=== PATIENT | female | born 1950 | race Caucasian/White ===

== ENCOUNTER 2023-05-06 02:27 | Emergency (ER) | payer MEDICARE, OTHER ==
[~2023-05-06] VITALS: Ht 167.6 cm; Wt 81.6 kg
[~2023-05-06 02:27] MED LIST: ASPI-1393 PO; BENA40TA89 PO; CHOL500037 PO; GLYB2.5T4 PO; HYDR-3919 PO; OMEP40CA20 PO; TOPXL100 PO; VENL75CA PO
[2023-05-06 02:43] VITALS: BP_SYST 164; PULSE 67; RESP 16; TEMP 97.4; O2SAT 97
[2023-05-06] MEDS ORDERED: MORPHINE 4 MG INJ. 4 MG/ML VIAL IVP ONE (03:30)
[2023-05-06 05:39] LABS: BASOPHILS % (AUTO) 0.4 % (0.0-2.0); EOSINOPHILS % (AUTO) 0.5 % (0.0-4.0); HEMATOCRIT 24.5 % (36-48); HEMOGLOBIN 8.3 g/dL (12.0-16.0); LYMPHOCYTES # (AUTO) 0.6 K/uL (1.0-5.5); LYMPHOCYTES % (AUTO) 6.3 % (20.5-51.5); MEAN CORPUSCULAR HEMOGLOBIN 31 pg (27-31); MEAN CORPUSCULAR HGB CONC 34 % (32-36); MEAN CORPUSCULAR VOLUME 92 fL (79.0-98.0); MONOCYTES # (AUTO) 0.7 K/uL (0.0-1.0); MONOCYTES % (AUTO) 7.5 % (1.7-9.3); NEUTROPHILS # (AUTO) 7.7 K/uL (1.8-7.7); NEUTROPHILS % (AUTO) 85.3 % (40.0-70.0); PLATELET COUNT (AUTO) 180 K/uL (130-430); RED BLOOD CELL COUNT(AUTO) 2.66 MIL/uL (4.2-6.2)
[2023-05-06 06:09] VITALS: BP_SYST 134; PULSE 74; RESP 18; TEMP 97; O2SAT 99
[2023-05-06 06:14] LABS: ALANINE AMINOTRANSFERASE 18 U/L (12-78); ALBUMIN 2.4 g/dL (3.4-4.8); ANION GAP 3 (5-15); ASPARTATE AMINOTRANSFERASE 26 U/L (10-37); CALCIUM 8.9 mg/dL (8.4-11.0); CARBON DIOXIDE 28 mmol/L (23-29); CHLORIDE 94 mmol/L (98-107); GLUCOSE 99 mg/dL (74-106); POTASSIUM 4.1 mmol/L (3.5-5.1); SODIUM SERUM 125 mmol/L (136-145); TOTAL BILIRUBIN 0.9 mg/dL (0.0-1.0); TOTAL PROTEIN, SERUM 6.3 g/dL (6.4-8.3); UREA NITROGEN, BLOOD 22 mg/dL (8-21)
== END 2023-05-06 06:09 | disposition short-term general hospital (02) ==
LOC: SED 02:27
DX: S72.092A Other fracture of head and neck of left femur, initial encounter for closed fracture (principal); E11.9 Type 2 diabetes mellitus without complications; I10 Essential (primary) hypertension; Z88.0 Allergy status to penicillin; Z79.899 Other long term (current) drug therapy; W01.0XXA Fall on same level from slipping, tripping and stumbling without subsequent striking against object, initial encounter; Y93.89 Activity, other specified; Y92.89 Other specified places as the place of occurrence of the external cause; Y99.8 Other external cause status
CPT/HCPCS: 99285; 96374; 80053; 82962; 85025; 36415; 93005; 72170; 73502; J2270

== ENCOUNTER 2023-08-11 13:06 | Emergency (ER) | payer MEDICARE ==
[~2023-08-11] VITALS: Ht 167.6 cm; Wt 81.6 kg
[2023-08-11 13:06] VITALS: BP_SYST 122; PULSE 61; RESP 20; TEMP 97.8; O2SAT 98
[2023-08-11 14:36] LABS: BASOPHILS % (AUTO) 0.6 % (0.0-2.0); EOSINOPHILS # (AUTO) 0.3 K/uL (0.0-0.4); EOSINOPHILS % (AUTO) 7.4 % (0.0-4.0); HEMATOCRIT 26.4 % (36-48); LYMPHOCYTES # (AUTO) 0.8 K/uL (1.0-5.5); LYMPHOCYTES % (AUTO) 22.1 % (20.5-51.5); MEAN CORPUSCULAR HEMOGLOBIN 32 pg (27-31); MEAN CORPUSCULAR HGB CONC 34 % (32-36); MEAN CORPUSCULAR VOLUME 94 fL (79.0-98.0); MONOCYTES # (AUTO) 0.5 K/uL (0.0-1.0); MONOCYTES % (AUTO) 15.3 % (1.7-9.3); NEUTROPHILS # (AUTO) 1.9 K/uL (1.8-7.7); NEUTROPHILS % (AUTO) 54.6 % (40.0-70.0); PLATELET COUNT (AUTO) 133 K/uL (130-430); RED CELL DISTRIBUTION WIDTH 15.5 % (9.0-15.0)
[2023-08-11 14:39] LABS: WHITE BLOOD COUNT (AUTO) 3.5 K/uL (4.8-10.8)
[2023-08-11 14:43] LABS: ANION GAP 5 (5-15); CALCIUM 8.6 mg/dL (8.4-11.0); CARBON DIOXIDE 29 mmol/L (23-29); CHLORIDE 104 mmol/L (98-107); CREATININE 1.79 mg/dL (0.55-1.30); GLUCOSE 90 mg/dL (74-106); POTASSIUM 3.7 mmol/L (3.5-5.1); SODIUM SERUM 138 mmol/L (136-145); UREA NITROGEN, BLOOD 18 mg/dL (8-21)
[2023-08-11 14:50] LABS: ALANINE AMINOTRANSFERASE 15 U/L (12-78); ALBUMIN 2.6 g/dL (3.4-4.8); ASPARTATE AMINOTRANSFERASE 30 U/L (10-37); BILIRUBIN,DIRECT 0.5 mg/dL (0.0-0.3); LIPASE 22 U/L (16-77); TOTAL BILIRUBIN 1.3 mg/dL (0.0-1.0); TOTAL PROTEIN, SERUM 6.5 g/dL (6.4-8.3)
[2023-08-11] MEDS: FUROSEMIDE 40 MG/4 ML VIAL IVP ONE (16:02)
[2023-08-11 16:03] LABS: INR 1.3 (0.8-1.2); PROTHROMBIN TIME 12.9 SECS (9.5-12.5)
[2023-08-11] MEDS ORDERED: iohexoL 350 mgI/mL, 100 ML INFUS..BTL IV ONE (16:39)
[2023-08-11] MEDS: cefTRIAXone 1 GM IVPB PREMIX 50 ML IV ONE (17:31)
[2023-08-11] MEDS ORDERED: FURO-150 PO (19:41)
[2023-08-11 20:26] VITALS: BP_SYST 121; PULSE 93; RESP 17; TEMP 97.7; O2SAT 98
== END 2023-08-11 20:26 | disposition home or self-care (01) ==
LOC: SED 13:06
DX: R18.8 Other ascites (principal); R06.02 Shortness of breath; I12.9 Hypertensive chronic kidney disease with stage 1 through stage 4 chronic kidney disease, or unspecified chronic kidney disease; E11.22 Type 2 diabetes mellitus with diabetic chronic kidney disease; N18.30 Chronic kidney disease, stage 3 unspecified; Z88.0 Allergy status to penicillin; Z86.2 Personal history of diseases of the blood and blood-forming organs and certain disorders involving the immune mechanism; Z86.79 Personal history of other diseases of the circulatory system; Z79.899 Other long term (current) drug therapy
CPT/HCPCS: 99285; 93970; 96365; 71275; 76700; 71045; 96375; 80076; 80048; 83880; 83690; 85025; 85379; 85610; 85730; 84484; 36415; 93005; 76376; Q9967; J0696; J1940

== ENCOUNTER 2023-08-18 10:34 | Emergency (ER) | payer MEDICARE ==
[~2023-08-18] VITALS: Ht 167.6 cm; Wt 81.6 kg
[~2023-08-18 10:34] MED LIST changes: +FURO-150 PO
[2023-08-18 10:38] VITALS: BP_SYST 125; PULSE 76; RESP 18; TEMP 98.4; O2SAT 100
[2023-08-18 11:38] LABS: BASOPHILS % (AUTO) 0.6 % (0.0-2.0); EOSINOPHILS # (AUTO) 0.4 K/uL (0.0-0.4); EOSINOPHILS % (AUTO) 9.4 % (0.0-4.0); HEMATOCRIT 26.1 % (36-48); LYMPHOCYTES # (AUTO) 0.8 K/uL (1.0-5.5); LYMPHOCYTES % (AUTO) 20.9 % (20.5-51.5); MEAN CORPUSCULAR HEMOGLOBIN 32 pg (27-31); MEAN CORPUSCULAR HGB CONC 34 % (32-36); MEAN CORPUSCULAR VOLUME 94 fL (79.0-98.0); MONOCYTES # (AUTO) 0.7 K/uL (0.0-1.0); MONOCYTES % (AUTO) 16.1 % (1.7-9.3); NEUTROPHILS # (AUTO) 2.2 K/uL (1.8-7.7); PLATELET COUNT (AUTO) 146 K/uL (130-430); RED BLOOD CELL COUNT(AUTO) 2.78 MIL/uL (4.2-6.2); RED CELL DISTRIBUTION WIDTH 15.2 % (9.0-15.0); WHITE BLOOD COUNT (AUTO) 4.1 K/uL (4.8-10.8)
[2023-08-18] MEDS: FUROSEMIDE 40 MG/4 ML VIAL IVP ONE (11:49)
[2023-08-18 12:13] LABS: INR 1.2 (0.8-1.2); PROTHROMBIN TIME 12.4 SECS (9.5-12.5)
[2023-08-18 12:17] LABS: ANION GAP 11 (5-15); CALCIUM 8.4 mg/dL (8.4-11.0); CARBON DIOXIDE 23 mmol/L (23-29); CHLORIDE 96 mmol/L (98-107); GLUCOSE 77 mg/dL (74-106); POTASSIUM 4.9 mmol/L (3.5-5.1); SODIUM SERUM 130 mmol/L (136-145); UREA NITROGEN, BLOOD 40 mg/dL (8-21)
[2023-08-18 12:18] LABS: ALANINE AMINOTRANSFERASE 14 U/L (12-78); ALBUMIN 2.6 g/dL (3.4-4.8); ASPARTATE AMINOTRANSFERASE 31 U/L (10-37); BILIRUBIN,DIRECT 0.5 mg/dL (0.0-0.3); CREATININE 5.91 mg/dL (0.55-1.30); TOTAL BILIRUBIN 1.2 mg/dL (0.0-1.0); TOTAL PROTEIN, SERUM 6.6 g/dL (6.4-8.3)
[2023-08-18 13:36] LABS: BILIRUBIN,URINE NEGATIVE (NEGATIVE); BLOOD, URINE 1+ (NEGATIVE); COLOR,URINE YELLOW (YELLOW); GLUCOSE,URINE NEGATIVE (NEGATIVE); KETONES,URINE NEGATIVE (NEGATIVE); LEUKOCYTE ESTERASE ,URINE 1+ (NEGATIVE); NITRITE, URINE NEGATIVE (NEGATIVE); PH,URINE 6.5 (5.0-8.0); PROTEIN URINE NEGATIVE (NEGATIVE); UROBILINOGEN,URINE 0.2 (0.2-1.0)
[2023-08-18 13:47] LABS: CLARITY/URINE SLIGHTLY HAZY (CLEAR)
[2023-08-18 14:00] LABS: BACTERIA,URINE MODERATE /HPF (None Seen); MUCUS,URINE 1+ /LPF (None Seen)
[2023-08-18] MEDS: NACL 0.9% 1,000 ML IV ONE (16:55)
[2023-08-18 21:05] VITALS: BP_SYST 129; PULSE 78; RESP 16; TEMP 97.5; O2SAT 98
== END 2023-08-18 21:05 | disposition short-term general hospital (02) ==
LOC: SED 10:34
DX: R53.1 Weakness (principal); I11.0 Hypertensive heart disease with heart failure; I50.9 Heart failure, unspecified; N19 Unspecified kidney failure; E86.0 Dehydration; E11.9 Type 2 diabetes mellitus without complications; J44.9 Chronic obstructive pulmonary disease, unspecified; K21.9 Gastro-esophageal reflux disease without esophagitis; Z88.0 Allergy status to penicillin; Z79.899 Other long term (current) drug therapy; R41.82 Altered mental status, unspecified
CPT/HCPCS: 99285; 96374; 70450; 71045; 96361; 87426; 80076; 80048; 81001; 83880; 85025; 85610; 85730; 87086; 84484; 36415; 93005; 76376; J7030; 81000; 81015; J1940

== ENCOUNTER 2023-09-02 20:21 | Emergency (ER) | payer MEDICARE ==
[~2023-09-02] VITALS: Ht 167.6 cm; Wt 79.4 kg
[2023-09-02 20:24] VITALS: BP_SYST 127; PULSE 72; RESP 22; TEMP 97.7; O2SAT 97
[2023-09-02] MEDS ORDERED: IPRATROPIUM/ALBUTEROL SULFATE 3 ML AMPUL.NEB (DUONEB) ONE (20:27)
[2023-09-02] MEDS ORDERED: RACEPINEPHRINE HCL 0.5 ML VIAL.NEB INH ONE (20:49)
[2023-09-02 20:53] LABS: BASOPHILS # (AUTO) 0.1 K/uL (0.0-0.2); BASOPHILS % (AUTO) 1.4 % (0.0-2.0); EOSINOPHILS % (AUTO) 0.1 % (0.0-4.0); HEMOGLOBIN 7.6 g/dL (12.0-16.0); LYMPHOCYTES # (AUTO) 0.4 K/uL (1.0-5.5); LYMPHOCYTES % (AUTO) 3.6 % (20.5-51.5); MEAN CORPUSCULAR HEMOGLOBIN 34 pg (27-31); MEAN CORPUSCULAR HGB CONC 35 % (32-36); MEAN CORPUSCULAR VOLUME 98 fL (79.0-98.0); MONOCYTES # (AUTO) 0.8 K/uL (0.0-1.0); NEUTROPHILS # (AUTO) 8.6 K/uL (1.8-7.7); NEUTROPHILS % (AUTO) 86.9 % (40.0-70.0); PLATELET COUNT (AUTO) 102 K/uL (130-430); RED BLOOD CELL COUNT(AUTO) 2.24 MIL/uL (4.2-6.2); RED CELL DISTRIBUTION WIDTH 18.6 % (9.0-15.0); WHITE BLOOD COUNT (AUTO) 9.8 K/uL (4.8-10.8)
[2023-09-02] MEDS: IPRATROPIUM/ALBUTEROL SULFATE 3 ML AMPUL.NEB (DUONEB) INH ONE (21:05)
[2023-09-02] MEDS: RACEPINEPHRINE HCL 0.5 ML VIAL.NEB INH ONE (21:05)
[2023-09-02 21:17] LABS: ANION GAP 9 (5-15); CALCIUM 8.4 mg/dL (8.4-11.0); CARBON DIOXIDE 28 mmol/L (23-29); CHLORIDE 95 mmol/L (98-107); CREATININE 3.08 mg/dL (0.55-1.30); GLUCOSE 174 mg/dL (74-106); POTASSIUM 4.3 mmol/L (3.5-5.1); SODIUM SERUM 132 mmol/L (136-145); UREA NITROGEN, BLOOD 17 mg/dL (8-21)
[2023-09-02 21:33] LABS: INFLUENZA TYPE A Negative (NEGATIVE); INFLUENZA TYPE B NEGATIVE (NEGATIVE)
[2023-09-02 21:34] LABS: COVID19 ANTIGEN SOFIA FIA NEGATIVE (NEGATIVE)
[2023-09-02] MEDS: FUROSEMIDE 40 MG/4 ML VIAL IVP ONE (23:56)
[2023-09-03 01:26] VITALS: BP_SYST 127; PULSE 70; RESP 23; TEMP 99.3; O2SAT 97
== END 2023-09-03 01:32 | disposition short-term general hospital (02) ==
LOC: SED 20:21
DX: S83.92XA Sprain of unspecified site of left knee, initial encounter (principal); R06.03 Acute respiratory distress; E87.70 Fluid overload, unspecified; D64.9 Anemia, unspecified; I12.0 Hypertensive chronic kidney disease with stage 5 chronic kidney disease or end stage renal disease; E11.22 Type 2 diabetes mellitus with diabetic chronic kidney disease; N18.6 End stage renal disease; Z88.0 Allergy status to penicillin; Z79.899 Other long term (current) drug therapy; Z20.822 Contact with and (suspected) exposure to COVID-19; X58.XXXA Exposure to other specified factors, initial encounter; Y93.89 Activity, other specified; Y92.89 Other specified places as the place of occurrence of the external cause; Y99.8 Other external cause status
CPT/HCPCS: 36415; 71045; 73564; 80048; 83880; 84484; 85025; 93005; 94640; 96374; 99291; J1940

== ENCOUNTER 2023-09-09 15:58 | Inpatient (IN) | payer MEDICARE ==
[~2023-09-09] VITALS: Ht 165.1 cm; Wt 73.7 kg
[2023-09-09 15:58] VITALS: BP_SYST 71; PULSE 77; RESP 16; TEMP 97; O2SAT 81
[2023-09-09] MEDS ORDERED: NALOXONE HCL 2 MG/2 ML SYR ONE (16:08)
[2023-09-09] MEDS ORDERED: MIDODRINE HCL 5 MG TABLET (PROAMATINE) PO SCH (16:15)
[2023-09-09 16:23] LABS: BASOPHILS % (AUTO) 0.3 % (0.0-2.0); EOSINOPHILS # (AUTO) 0.1 K/uL (0.0-0.4); EOSINOPHILS % (AUTO) 0.8 % (0.0-4.0); HEMATOCRIT 34.9 % (36-48); HEMOGLOBIN 11.8 g/dL (12.0-16.0); LYMPHOCYTES % (AUTO) 9.7 % (20.5-51.5); MEAN CORPUSCULAR HEMOGLOBIN 33 pg (27-31); MEAN CORPUSCULAR HGB CONC 34 % (32-36); MEAN CORPUSCULAR VOLUME 98 fL (79.0-98.0); MONOCYTES % (AUTO) 9.9 % (1.7-9.3); NEUTROPHILS # (AUTO) 7.9 K/uL (1.8-7.7); NEUTROPHILS % (AUTO) 79.3 % (40.0-70.0); PLATELET COUNT (AUTO) 166 K/uL (130-430); RED BLOOD CELL COUNT(AUTO) 3.54 MIL/uL (4.2-6.2); RED CELL DISTRIBUTION WIDTH 19.2 % (9.0-15.0)
[2023-09-09 16:28] LABS: ALLEN'S TEST POSITIVE (P); BLOOD GAS BASE EXCESS 1.9 mmol/L (-3.0-3.0); BLOOD GAS HCO3 24.2 mmol/L (21.0-27.0)
[2023-09-09 16:37] LABS: BLOOD GAS PCO2 31.5 mmHg (35.0-45.0); BLOOD GAS PH 7.503 (7.350-7.450)
[2023-09-09 16:38] LABS: ABG O2 SAT% ESTIMATE 93.9 % (94.0-100.0)
[2023-09-09] MEDS: MIDODRINE HCL 5 MG TABLET (PROAMATINE) PO ONE (16:55)
[2023-09-09] MEDS: NALOXONE HCL 2 MG/2 ML SYR (NARCAN) IVP ONE (17:02)
[2023-09-09 17:04] LABS: ANION GAP 10 (5-15); CALCIUM 9.3 mg/dL (8.4-11.0); CARBON DIOXIDE 32 mmol/L (23-29); CHLORIDE 97 mmol/L (98-107); CREATININE 3.18 mg/dL (0.55-1.30); GLUCOSE 124 mg/dL (74-106); POTASSIUM 3.4 mmol/L (3.5-5.1); SODIUM SERUM 139 mmol/L (136-145); UREA NITROGEN, BLOOD 39 mg/dL (8-21)
[2023-09-09] MEDS: KETOROLAC TROMETHAMINE 30 MG VIAL IVP ONE (17:10)
[2023-09-09 17:11] LABS: ALANINE AMINOTRANSFERASE 6 U/L (12-78); ALBUMIN 3.6 g/dL (3.4-4.8); ASPARTATE AMINOTRANSFERASE 23 U/L (10-37); BILIRUBIN,DIRECT 2.2 mg/dL (0.0-0.3); TOTAL BILIRUBIN 4.6 mg/dL (0.0-1.0); TOTAL PROTEIN, SERUM 7.3 g/dL (6.4-8.3)
[2023-09-09] MEDS ORDERED: MEROPENEM 500 MG VIAL IV ONE (18:52)
[2023-09-09] MEDS: MEROPENEM 1 GM in NS 100 ML IV ONE (18:59)
[2023-09-09 19:44] LABS: BILIRUBIN,URINE 1+ (NEGATIVE); BLOOD, URINE 2+ (NEGATIVE); CLARITY/URINE CLEAR (CLEAR); COLOR,URINE YELLOW (YELLOW); GLUCOSE,URINE NEGATIVE (NEGATIVE); KETONES,URINE NEGATIVE (NEGATIVE); LEUKOCYTE ESTERASE ,URINE 1+ (NEGATIVE); NITRITE, URINE NEGATIVE (NEGATIVE); PH,URINE 5.5 (5.0-8.0); PROTEIN URINE 1+ (NEGATIVE)
[2023-09-09 19:56] LABS: RBC,URINE 20-50 /HPF (0-3); WBC,URINE 20-50 /HPF (0-3)
[2023-09-09 19:57] LABS: BACTERIA,URINE MODERATE /HPF (None Seen)
[2023-09-09] MEDS ORDERED: ZOLPIDEM TARTRATE 5 MG TABLET PO PRN (20:30)
[2023-09-09] MEDS ORDERED: LORazepam 2 MG/ML VIAL IVP PRN (20:30)
[2023-09-09] MEDS ORDERED: MUPIROCIN 2% TOPICAL OINTMENT 22 GM NS PRN (20:30)
[2023-09-09] MEDS ORDERED: INSULIN LISPRO SLIDING SCALE 100 UNITS/ML, 3 ML VIAL (humaLOG) SUBCUT PRN (20:30)
[2023-09-09] MEDS ORDERED: ONDANSETRON HCL 4 MG/2 ML VIAL IVP PRN (20:30)
[2023-09-09] MEDS ORDERED: MAGNESIUM SULFATE 50 ML IV PRN (20:30)
[2023-09-09] MEDS ORDERED: DOCUSATE SODIUM 100 MG CAPSULE PO PRN (20:30)
[2023-09-09] MEDS ORDERED: MORPHINE 2 MG/ML INJ. SYRINGE IVP PRN ×2 (20:30)
[2023-09-09] MEDS ORDERED: DEXTROSE 50% JECT 50 ML DISP.SYRIN IVP PRN (20:30)
[2023-09-09] MEDS ORDERED: ACETAMINOPHEN 500 MG TABLET PO PRN ×3 (21:00)
[2023-09-09] MEDS: HEPARIN SODIUM,PORCINE 5,000 UNITS/ML VIAL SUBCUT SCH (21:00)
[2023-09-09] MEDS: FUROSEMIDE 20 MG TABLET PO SCH (21:00)
[2023-09-09] MEDS: cefTRIAXone 1 GM in D5W 50 ML IV SCH (21:30)
[2023-09-09] MEDS ORDERED: FUROSEMIDE 20 MG TABLET ONE (21:36)
[2023-09-09] MEDS ORDERED: HEPARIN SODIUM,PORCINE 5,000 UNITS/ML VIAL ONE (21:36)
[2023-09-09 21:51] LABS: INR 1.4 (0.8-1.2); PROTHROMBIN TIME 14.4 SECS (9.5-12.5)
[2023-09-09 23:22] VITALS: BP_SYST 97; PULSE 67; RESP 19; TEMP 99; O2SAT 98
[2023-09-10] VITALS: BP_SYST 99; PULSE 71; RESP 18; TEMP 97.3
[2023-09-10 05:56] LABS: ANION GAP 9 (5-15); CALCIUM 8.8 mg/dL (8.4-11.0); CARBON DIOXIDE 30 mmol/L (23-29); CHLORIDE 99 mmol/L (98-107); CREATININE 3.27 mg/dL (0.55-1.30); GLUCOSE 100 mg/dL (74-106); POTASSIUM 3.2 mmol/L (3.5-5.1); SODIUM SERUM 138 mmol/L (136-145); UREA NITROGEN, BLOOD 41 mg/dL (8-21)
[2023-09-10 05:58] LABS: BASOPHILS % (AUTO) 0.1 % (0.0-2.0); EOSINOPHILS # (AUTO) 0.2 K/uL (0.0-0.4); EOSINOPHILS % (AUTO) 1.9 % (0.0-4.0); HEMOGLOBIN 9.4 g/dL (12.0-16.0); LYMPHOCYTES # (AUTO) 1.1 K/uL (1.0-5.5); LYMPHOCYTES % (AUTO) 11.4 % (20.5-51.5); MEAN CORPUSCULAR HEMOGLOBIN 33 pg (27-31); MEAN CORPUSCULAR HGB CONC 34 % (32-36); MEAN CORPUSCULAR VOLUME 97 fL (79.0-98.0); MONOCYTES # (AUTO) 1.3 K/uL (0.0-1.0); MONOCYTES % (AUTO) 13.2 % (1.7-9.3); NEUTROPHILS # (AUTO) 7.2 K/uL (1.8-7.7); NEUTROPHILS % (AUTO) 73.4 % (40.0-70.0); PLATELET COUNT (AUTO) 125 K/uL (130-430); RED BLOOD CELL COUNT(AUTO) 2.87 MIL/uL (4.2-6.2); RED CELL DISTRIBUTION WIDTH 19.1 % (9.0-15.0); WHITE BLOOD COUNT (AUTO) 9.8 K/uL (4.8-10.8)
[2023-09-10 08:00] VITALS: O2SAT 96
[2023-09-10] MEDS ORDERED: lisinopriL 20 MG TABLET PO SCH (09:00)
[2023-09-10] MEDS ORDERED: BENAZEPRIL HCL 20 MG TABLET (LOTENSIN) PO SCH (09:00)
[2023-09-10] MEDS ORDERED: NALOXONE HCL 0.4 MG/ML AMP (NARCAN) IVP PRN (09:00)
[2023-09-10] MEDS ORDERED: VENLAFAXINE HCL Non-Formulary 75 MG CAP.SR.24H PO SCH (09:00)
[2023-09-10] MEDS ORDERED: HYDROcodone/ACETAMIN 5-325 MG TAB (NORCO/ VICODIN) PO PRN (09:00)
[2023-09-10] MEDS: POTASSIUM CHLORIDE 20 MEQ TABLET.ER PO PRN (09:13)
[2023-09-10] MEDS: ASPIRIN 81 MG TABLET(ECOTRIN) PO SCH (09:13)
[2023-09-10] MEDS: Effexor 37.5 MG TAB PO SCH (09:14)
[2023-09-10 11:50] VITALS: BP_SYST 96; PULSE 72; RESP 20; TEMP 98.8; O2SAT 95
[2023-09-10] MEDS ORDERED: ALBUMIN HUMAN 25% 200 ML IV ONE ×2 (11:57→12:00)
[2023-09-10 17:32] VITALS: BP_SYST 115; PULSE 89; RESP 20; TEMP 97.6; O2SAT 100
[2023-09-10 17:37] VITALS: BP_SYST 108; PULSE 71; RESP 20; TEMP 97.3; O2SAT 96
== END 2023-09-10 18:01 | disposition short-term general hospital (02) | DRG 871 ==
LOC: SED 15:58 → STU 20:29
PROVIDERS: ADMIT General Practice; ATTEND General Practice
PROC: 5A1D70Z Performance of Urinary Filtration, Intermittent, Less than 6 Hours Per Day (ICD-10-PCS; principal; 2023-09-10)
DX: A41.9 Sepsis, unspecified organism (principal); J96.01 Acute respiratory failure with hypoxia; N17.0 Acute kidney failure with tubular necrosis; N18.6 End stage renal disease; N39.0 Urinary tract infection, site not specified; I13.2 Hypertensive heart and chronic kidney disease with heart failure and with stage 5 chronic kidney disease, or end stage renal disease; D63.8 Anemia in other chronic diseases classified elsewhere; E11.22 Type 2 diabetes mellitus with diabetic chronic kidney disease; E87.6 Hypokalemia; I50.9 Heart failure, unspecified; Z99.2 Dependence on renal dialysis; Z88.0 Allergy status to penicillin
CPT/HCPCS: 36415; 36600; 71045; 72131; 76700; 80048; 80076; 81000; 81001; 81015; 82803; 82948; 83037; 83605; 83735; 83880; 84484; 85025; 85610; 85730; 87040; 87086; 87186; 90935; 93005; 96365; 96375; 99291; G0378; J0696; J1644; J1885; J2185; J2310; J7060

== ENCOUNTER 2023-10-26 09:25 | Emergency (ER) | payer MEDICARE ==
[~2023-10-26] VITALS: Ht 167.6 cm; Wt 70.3 kg
[2023-10-26 09:51] VITALS: BP_SYST 120; PULSE 81; RESP 18; TEMP 98.2; O2SAT 94
[2023-10-26 10:17] LABS: BASOPHILS % (AUTO) 0.3 % (0.0-2.0); EOSINOPHILS # (AUTO) 0.2 K/uL (0.0-0.4); EOSINOPHILS % (AUTO) 2.4 % (0.0-4.0); HEMATOCRIT 30.8 % (36-48); HEMOGLOBIN 10.5 g/dL (12.0-16.0); LYMPHOCYTES # (AUTO) 0.7 K/uL (1.0-5.5); LYMPHOCYTES % (AUTO) 11.5 % (20.5-51.5); MEAN CORPUSCULAR HEMOGLOBIN 36 pg (27-31); MEAN CORPUSCULAR HGB CONC 34 % (32-36); MEAN CORPUSCULAR VOLUME 104 fL (79.0-98.0); MONOCYTES # (AUTO) 0.8 K/uL (0.0-1.0); MONOCYTES % (AUTO) 12.2 % (1.7-9.3); NEUTROPHILS # (AUTO) 4.6 K/uL (1.8-7.7); NEUTROPHILS % (AUTO) 73.6 % (40.0-70.0); PLATELET COUNT (AUTO) 113 K/uL (130-430); RED BLOOD CELL COUNT(AUTO) 2.96 MIL/uL (4.2-6.2); RED CELL DISTRIBUTION WIDTH 17.1 % (9.0-15.0); WHITE BLOOD COUNT (AUTO) 6.3 K/uL (4.8-10.8)
[2023-10-26 10:45] LABS: INR 1.4 (0.8-1.2); PROTHROMBIN TIME 14.4 SECS (9.5-12.5)
[2023-10-26 11:41] LABS: ALANINE AMINOTRANSFERASE 34 U/L (12-78); ALBUMIN 2.5 g/dL (3.4-4.8); ANION GAP 7 (5-15); ASPARTATE AMINOTRANSFERASE 77 U/L (10-37); BILIRUBIN,DIRECT 0.9 mg/dL (0.0-0.3); CALCIUM 8.3 mg/dL (8.4-11.0); CARBON DIOXIDE 28 mmol/L (23-29); CHLORIDE 90 mmol/L (98-107); CREATININE 3.74 mg/dL (0.55-1.30); GLUCOSE 109 mg/dL (74-106); POTASSIUM 3.8 mmol/L (3.5-5.1); SODIUM SERUM 125 mmol/L (136-145); TOTAL BILIRUBIN 1.8 mg/dL (0.0-1.0); TOTAL PROTEIN, SERUM 6.4 g/dL (6.4-8.3); UREA NITROGEN, BLOOD 28 mg/dL (8-21)
[2023-10-26 15:20] VITALS: BP_SYST 143; PULSE 80; RESP 17; TEMP 97.1; O2SAT 98
== END 2023-10-26 15:22 | disposition short-term general hospital (02) ==
LOC: SED 09:25
DX: I12.0 Hypertensive chronic kidney disease with stage 5 chronic kidney disease or end stage renal disease (principal); E11.22 Type 2 diabetes mellitus with diabetic chronic kidney disease; N18.6 End stage renal disease; K70.31 Alcoholic cirrhosis of liver with ascites; I87.8 Other specified disorders of veins; R53.1 Weakness; Z88.0 Allergy status to penicillin; Z99.2 Dependence on renal dialysis
CPT/HCPCS: 36415; 71045; 80048; 80076; 82948; 83605; 83880; 84484; 85025; 85610; 85730; 87040; 93005; 99285